=== PATIENT | male | born 1975 | race African-American/Black ===

== ENCOUNTER 2024-09-28 00:53 | Day surgery (SDC) | payer BC, SELFPAY ==
[2024-09-19 11:11] VITALS: BMI 29.0
--- OUTSIDE RECORDS SUMMARY | 2024-09-28 01:01 | XMS_ITS | Clinical Summary ---
Author Organization [facility] Address [address] [address] Care Team Providers Care Sound Technician Supervisor Name Role Phone Unknown, Provider Primary Care Provider Unavaila ble Source Comments [facility],non-owned Affiliates and Associated Physician Practices is amultiple site organization consisting of ambulatory clinics and hospital sitesin [place], [place], [place] and [place]. This disclosure is being madepursuant to the Care Everywhere program and may not contain all information available regarding this patient. Last updated 18.[facility] Allergies Active Allergy Reactions Criticality Noted Date Comments Oxycodone Urticaria Medium 12/16/2022 Medications * Be aware that medications may not be up to date on this document. Alwaysverify current medications with the patient. metoprolol tartrate IR (Lopressor) 100 MG tablet Take by mouth once daily Active losartan-hydroCHLOROth iazide (Hyzaar) 100-25 MG tablet Take 1 (one) tablet by mouth once daily 30 tablet 11 022 Active allopurinol (Zyloprim) 100 MG tablet TAKE 1 TABLET BY MOUTH EVERY DAY FOR 1 WEEK THEN TAKE 2 TABLETS BY MOUTH EVERY DAY 023 Active amLODIPine (Norvasc) 10 MG tablet Take 1 (one) tablet by mouth once daily 024 Active atorvastatin (Lipitor) 10 MG tablet Take 1 (one) tablet by mouth once daily 023 Active cloNIDine (Catapres) 0.2 MG tablet Take 1 (one) tablet by mouth every 8 hours as needed 022 Active metoprolol succinate XL 24hr (Toprol XL) 50 MG tablet Take 1 (one) tablet by mouth once daily 023 Active triamcinolone acetonide (Kenalog) 0.1 % cream APPLY THIN LAYER TOPICALLY TO THE AFFECTED AREA TWICE DAILY NEEDED Active losartan - hydroCHLOROthiazide (Hyzaar) 50-12.5 MG tablet Take 1 (one) tablet by mouth once daily Active methylPREDNISolone (Medrol Dosepak) 4 MG tablet Active traMADol (Ultram) 50 MG tablet Take 1 (one) tablet by mouth every 6 hours as needed for Pain 15 tablet 024 Active acetaminophen (Tylenol) 325 MG tablet Take 2 (two) tablets by mouth every 6 hours as needed for Fever or Pain Maximum allowable Acetaminophen amount = 4 Grams (4000 mg) / 24 hours. 30 tablet Active docusate sodium (Colace) 100 MG capsule Take 1 (one) capsule by mouth once daily 30 capsule Active Social History Tobacco Use Types Packs/Day Years Used Date Smoking Tobacco: Never Smokeless Tobacco: Never Tobacco Cessation:Counseling Given: Not Answered Alcohol Use Standard Drinks/Week Comments Yes 5 (1 standard drink = 0.6 oz pure alcohol) daily beer/vodka 4 beers and 8oz vodka AUDIT-C Answer Date Recorded Q1: How often do you have a drink containing alc ohol? 2-4 times a month 08/10/2023 Q2: How many drinks containi ng alcohol do you have on a typical day when you are drinking? 3 or 4 08/10/2023 Q3: How often do you have si x or more drinks on one occasion? Never 08/10/2023 Sex and Gender Information Value Date Recorded Sex Assigned at Not on file Legal Sex Male 4:01 PM CDT Gender Identity Not on file Sexual Orientation Not on file Last Filed Vital Signs Vital Sign Reading Time Taken Comments Blood Pressure 144/97 08/11/2023 10:52 AM CDT Pulse 86 08/11/2023 10:52 AM CDT Temperature 36.4 C (97.5 F) 08/10/2023 2:20 PM CDT Respiratory Rate 16 08/10/2023 3:10 PM CDT Oxygen Saturation 94% 08/11/2023 10:52 AM CDT Inhaled Oxygen Concentration - - Weight 111.6 kg (246 lb) 08/11/2023 10:52 AM CDT Height 182.9 cm (6') 08/11/2023 10:52 AM CDT Body Mass Index 33.36 08/11/2023 10:52 AM CDT Plan of Treatment Health Maintenance Due Date Last Done Comments COLOGUARD (AGES 45-75) - COL ON CA SCREENING 1975 COLON MONITORING 1975 COLONOSCOPY - COLON CA SCREENING 1975 CT COLONOGRAPHY - COLON CA SCREENING 1975 Colorectal Cancer Screening 1975 FIT - COLON CA SCREENING 1975 FLEX SIG - COLON CA SCREENING 1975 HIV SCREENING 1990 HEPATITIS C SCREENING 02/10/1993 DTAP/TDAP/TD VACCINES (1 - Tdap) 1994 HEPATITIS B VACCINE (1 of 3 - 19+ 3-dose series) 1994 SCREENING FOR DIABETES 12/17/2022 COVID-19 VACCINE (1 - 2023-2 5 season) 2024 DEPRESSION SCREENING 06/01/2024 INFLUENZA VACCINE (Season Ended) 2025 ZOSTER VACCINE (1 of 2) 2025 HIB VACCINE Aged Out No longer eligi ble based on patient's age to complete this topic HPV VACCINE Aged Out No longer eligi ble based on patient's age to complete this topic MENINGOCOCCAL (Group B) VACC INE SHARED DECISION-MAKING Aged Out No longer eligibl e based on patient's age to complete this topic MENINGOCOCCAL GROUPS A/C/Y/W VACCINE Aged Out No longer eligible b ased on patient's age to complete this topic Medical Devices Implanted Type Area Engineer Rf Deployment Device Identifier Shelf Expiration Date Model / Serial / Lot Independence Sut Cscr Fwr 2.2mm 2 Ndl Wire 4mm Implanted:Qty: 1 on 12/05/2022 by Conner Gil MD at [facility] Right: Hand [employer] 03/31/2027 AR-1318FT / / [id number] Independence Sut Cscr Fwr 2.2mm 2 Ndl Wire 4mm Implanted:Qty: 1 on 12/05/2022 by Conner Gil MD at [facility] Right: Hand [employer] 03/31/2027 AR-1318FT / / [id number] Sys Impl Internalbrace Forefoot Peek Implanted:Qty: 1 on 12/05/2022 by Conner Gil MD at [facility] Right: Hand [employer] 07/01/2027 AR-1530P- CP / / [id number] Graft Bone Ntr Ac Cnxs Dbm 1ml Ptty Syr - [id number] Implanted:Qty: 1 on 12/05/2022 by Conner Gil MD at [facility] Right: Wrist [employer] 10/27/20233000-0 / [id number] / [id number] Screw 3.5mm 22mm Mini Ft Comp Slf-Tap Implanted:Qty: 1 on 12/05/2022 by Conner Gil MD at [facility] Right: Wrist [employer] AR-8730-2 2H / / Graft Bone Ac Cnxs Dbm 2.5ml Ptty Rtu - [id number] Implanted:Qty: 1 on 08/10/2023 by Conner Gil MD at [facility] Right: Wrist [employer] 08/27/20233000-0 / [id number] / [id number] Explanted Type Area Engineer Rf Deployment Device Identifier Shelf Expiration Date Model / Serial / Lot Screw 3.5mm 20mm T15 Ft Slf-Tap Sld Hxlb Implanted:Qty: 1 on 12/05/2022 by Conner Gil MD at [facility] Explanted:Qty: 1 on 08/10/2023 by Conner Gil MD at [facility] Right: Wrist [employer] AR-8935-20 / / Description:This screw was n ot on the x-rays taken for the hardware removal surgery. Marlena Krevlock Screw, Ti 2.4x20 Implanted:Qty: 1 on 12/05/2022 by Conner Gil MD at [facility] Explanted:Qty: 1 on 08/10/2023 by Conner Gil MD at [facility] Right: Wrist [id number] / / Marlena Krevlock Screw, Ti 2.4 X 22 Implanted:Qty: 1 on 12/05/2022 by Conner Gil MD at [facility] Explanted:Qty: 1 on 08/10/2023 by Conner Gil MD at [facility] Right: Wrist [id number] / / Screw 3.5mm 16mm Kreulock Ti Nonster Implanted:Qty: 1 on 12/05/2022 by Conner Gil MD at [facility] Explanted:Qty: 1 on 08/10/2023 by Conner Gil MD at [facility] Right: Wrist [employer] AR-8935CL-1 6 / / Screw 3.5mm 16mm T15 Ft Slf-Tap Sld Hxlb Implanted:Qty: 1 on 12/05/2022 by Conner Gil MD at [facility] Explanted:Qty: 1 on 08/10/2023 at [facility] Right: Wrist [employer] AR-8935-16 / / Low Profile Screw, 2.4 Mm X 20 Mm Cortex Implanted:Qty: 1 on 12/05/2022 by Conner Gil MD at [facility] Explanted:Qty: 1 on 08/10/2023 by Conner Gil MD at [facility] Right: Wrist [id number] / / Dorsal Distal Rad Plt, Ti Std Rt 4h Implanted:Qty: 1 on 12/05/2022 by Conner Gil MD at [facility] Explanted:Qty: 1 on 08/10/2023 by Conner Gil MD at [facility] Right: Wrist AR-8916DSR- 04 / / Insurance ANTH Care Teams Sound Technician Supervisor Relationship Specialty Start Date End Date Unknown, Provider PCP - General 12/05/22
--- OUTSIDE RECORDS SUMMARY | 2024-09-28 01:01 | XMS_ITS | Referral Summary ---
Author Organization [facility] Address [address] [place] [id number] Care Team Providers Care Underwriting Account Representative Name Role Phone Referring, Unknown MD Primary Care Provider Unav ailable Allergies No known active allergies Medications losartan-hydroch lorothiazide (HYZAAR) 100-25 mg per tablet Take 1 tablet by mouth daily 30 tablet 03/18/2022 Active metoprolol (LOPRESSOR) 100 mg tablet Take by mouth daily Pt is unsure of dose. Active amLODIPine (NORVASC) 5 mg tablet Take 1 tablet (5 mg total) by mouth daily 30 tablet 5 04/28/2022 Active Active Problems Problem Noted Date Diagnosed Date Essential hypertension 04/28/2022 Immunizations Immunization Administration Dates Next Due Tdap 12/03/2022 Social History Tobacco Use Types Packs/Day Years Used Date Smoking Tobacco: Former Cigarettes Tobacco Cessation:Counseling Given: Not Answered AUDIT-C Answer Date Recorded Q1: How often do you have a drink containing alcohol? 4 or more times a week 04/28/2022 Average Number of Drinks Not on file 022 Frequency of Binge Drinking Not on file 04/02 Personal Safety Answer Date Recorded Have you ever been in or are you currently in a harmful physical or emotional relationship or is someone making you feel afraid or unsafe? 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 Gender Identity Not on file Sexual Orientation Not on file Last Filed Vital Signs Vital Sign Reading Time Taken Comments Blood Pressure 132/94 12/03/2022 3:45 PM CDT Pulse 84 12/03/2022 3:45 PM CDT Temperature 36.4 C (97.6 F) 12/03/2022 1:13 PM CDT Respiratory Rate 18 12/03/2022 3:45 PM CDT Oxygen Saturation 96% 12/03/2022 3:45 PM CDT Inhaled Oxygen Concentration - - Weight 115.7 kg (255 lb) 12/03/2022 1:13 PM CDT Height 182.9 cm (6') 12/03/2022 1:13 PM CDT Body Mass Index 34.58 12/03/2022 1:13 PM CDT Plan of Treatment Not on file Insurance [employer] Member Subscriber Plan / Payer (Ef fective 2021-Present) Name:Dhruv Samaniego Relation to Subscriber:Spouse Name:DHRUV SAMANIEGO Date of :1975 (Home) Address: [address] [place] [id number] Payer ID:[id number] (NAIC) Type:eVoter Address: [facility] [id number] [place] [id number] Care Teams Underwriting Account Representative Relationship Specialty Start Date End Date Referring, Unknown, PCP - General Pediatrics 03/18/22
--- OUTSIDE RECORDS SUMMARY | 2024-09-28 01:01 | XMS_ITS | Clinical Summary ---
Author Organization [facility] Address [address] [place] [id number] Care Team Providers Care Director Of Cath Lab Name Role Phone Referring, Unknown MD Primary [...] Immunization Administration Dates Next Due Tdap 12/03/2022 Surgical History Surgery Date Site/Laterality Comments SURGERY FOR CONGENITAL HERNIA Medical History Medical History Date Comments Hypertension Family History Medical History Relation Name Comments Hypertension Father Hypertension Mother Relation Name Status Comments Father Mother Social History Tobacco Use Types Packs/Day Years [...] on file 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 Gender Identity Not on file Sexual Orientation Not on file Obstetrics History Last Filed Vital Signs Vital Sign Reading [...] 12/03/2022 1:13 PM CDT Plan of Treatment Health Maintenance Due Date Last Done Comments Colon Cancer Screening-Colonoscopy 1975 Depression Screening 1975 Hepatitis C Screening 1975 Prostate Cancer Screening-PSA 1975 Hepatitis B Screening 1993 Regular Well Visit/Exam 18-64 1993 Covid-19 Vaccine (2023- season) 2024 04/18/2021, 08/21/2020, 07/30/2020 Influenza Vaccine (#1) 2024 DTaP/Tdap/Td Vaccine (7 - Td or Tdap) 12/03/2032 12/03/2022, 03/21/1991, 10/31/1976, Additional history exists Pneumococcal vaccine <65 Aged Out No longer eligible based on patient's age to complete this topic Insurance [facility] Address: [id number] [place] [address] [employer] Care Teams Director Of Cath Lab Relationship Specialty Start Date End Date Referring, Unknown, PCP - General Pediatrics 03/18/22
[2024-09-28 09:39] VITALS: BP 150/106; PULSE 69; RESP 20; TEMP 36.2; O2SAT 99; BMI 29.4
[2024-09-28] MEDS: LACTATED RINGERS 1,000 ML 150 ML IV CONT (09:41)
--- NOTE | 2024-09-28 10:04 | WPDANESEPPF ---
Anes - Initial Pre Proc Eval Procedure: Operation Date: 09/28/24 10:30 Proposed Procedures p Screening Colonoscopy - Jeff Del Valle MD Date/Time: 09/28/24 10:04 Surgeon: Jeff Del Valle MD Pre Op Diagnosis: screening colon Patient Data Age: 49 Gender: M Height: 1.83 m Weight: 98.3 kg Last Vital Signs Temp 97.2 F L 09/28/24 09:39 Pulse 69 09/28/24 09:39 Resp 20 09/28/24 09:39 BP 150/106 H 09/28/24 09:39 Pulse Ox 99 09/28/24 09:39 O2 Del Method Room Air 09/28/24 09:39 Allergies Allergy/AdvReac Type Severity Reaction Status Date / Time No Known Allergies Allergy Verified 09/28/24 09:37 Home Medications ?Medication ?Instructions ?Recorded ?Confirmed ?Type atorvastatin 10 mg tablet 10 mg PO DAILY #30 tabs 03/26/22 09/28/24 Rx losartan 100 1 tablet PO DAILY #90 tabs 11/27/22 09/28/24 Rx mg-hydrochlorothiazide 25 mg tablet simvastatin 10 mg tablet 10 mg PO DAILY #90 tabs 11/27/22 09/28/24 Rx metoprolol succinate 50 mg 50 mg PO DAILY #90 tabs 01/14/24 09/28/24 Rx tablet,extended release 24 hr amlodipine 10 mg tablet See Rx Instructions .Route 04/21/24 09/28/24 Rx .COMPLEX #90 tabs triamcinolone acetonide 0.1 % 1 applic topical TID #80 grams 05/11/24 09/28/24 Rx topical ointment Patient hx anesthesia problems: none Family hx anesthesia problems: none Results Review: All pre-operative results and documents have been reviewed as part of the pre-operative evaluation. [facility] Past Medical History Medical History Hyperglycemia HLD (hyperlipidemia) HTN (hypertension) Social History Social History Smoking status: Former smoker Tobacco type: cigarettes Alcohol intake: current Drinks per week: 7 Substance use: former Substance use type: marijuana Last use: yrs Do You Feel Safe in your Home?: Yes Lack of Transportation: No Lack of Food: Never True Current Housing: I Have Housing Concerned About Future Housing: No Difficulty Paying Gas/Electric Bills: No Difficulty Paying for Meds: No Currently Unemployed: No Education: Associate Degree Difficulty w/ Childcare or Family Care: No Living arrangements: with family Spiritual care concerns: No Anes - Eval Final PreProcedure Day of Procedure 09/28/24 10:04 Patient weight: normal Heart: regular rate and rhythm Lungs: clear to auscultation Airway: Mallampati scale class II Neurological: alert and oriented Last oral intake: >/= 8 hours ASA classification: II Emergent: no Anesthetic plan: proceed Anesthesia type and monitoring: general GIVS and standard monitoring Results Review: All pre-operative results and documents have been reviewed as part of the pre-operative evaluation. Informed Consent: The patient's anesthetic plan and its attendant risks and benefits were discussed with the patient/family/POA. Questions were solicited and answers provided to the satisfaction of the patient/family/POA.
--- NOTE | 2024-09-28 10:27 | PM.IMHP ---
H&P: HPI History of Present Illness Date/Time: 09/28/24 10:27 Chief Complaint: Screening colonoscopy Narrative: This is the patient's first colonoscopy. There are no GI symptoms and there is no family history of colorectal cancer. Review of Systems Review of Systems: All systems reviewed & are unremarkable except as noted in HPI and below PMFSH Past Medical History Medical History Hyperglycemia HLD (hyperlipidemia) HTN (hypertension) Social History Social History Smoking status: Former smoker Tobacco type: cigarettes Alcohol intake: current Drinks per week: 7 Substance use: former Substance use type: marijuana Last use: yrs Do You Feel Safe in your Home?: Yes Lack of Transportation: No Lack of Food: Never True Current Housing: I Have Housing Concerned About Future Housing: No Difficulty Paying Gas/Electric Bills: No Difficulty Paying for Meds: No Currently Unemployed: No Education: Associate Degree Difficulty w/ Childcare or Family Care: No Living arrangements: with family Spiritual care concerns: No Meds Home Medications and Allergies Home Medications ?Medication ?Instructions ?Recorded ?Confirmed ?Type atorvastatin 10 mg tablet 10 mg PO DAILY #30 tabs 03/26/22 09/28/24 Rx losartan 100 1 tablet PO DAILY #90 tabs 11/27/22 09/28/24 Rx mg-hydrochlorothiazide 25 mg tablet simvastatin 10 mg tablet 10 mg PO DAILY #90 tabs 11/27/22 09/28/24 Rx metoprolol succinate 50 mg 50 mg PO DAILY #90 tabs 01/14/24 09/28/24 Rx tablet,extended release 24 hr amlodipine 10 mg tablet See Rx Instructions .Route 04/21/24 09/28/24 Rx .COMPLEX #90 tabs triamcinolone acetonide 0.1 % 1 applic topical TID #80 grams 05/11/24 09/28/24 Rx topical ointment Allergies Allergy/AdvReac Type Severity Reaction Status Date / Time No Known Allergies Allergy Verified 09/28/24 09:37 Vital Signs Vital Signs - 24 hr 09/28/24 09:39 Temperature 97.2 F L Pulse Rate 69 Respiratory Rate 20 Blood Pressure 150/106 H Pulse Oximetry 99 Oxygen Delivery Room Air Assessment and Plan Assessment and plan (1) Colon cancer screening: Code(s): Z12.11 - Encounter for screening for malignant neoplasm of colon Status: Acute Assessment and Plan: The patient is deemed a good candidate for the procedure. Consent signed. Will proceed.
[2024-09-28 10:59] VITALS: BP 140/105; PULSE 78; RESP 17; O2SAT 100
[2024-09-28 11:09] VITALS: BP 163/119; PULSE 69; RESP 20; O2SAT 100
--- NOTE | 2024-09-28 11:11 | SUR.PHASEII ---
patients blood pressure is 163/119. Patient stated I haven't taken medicine since the day before yesterday and only took half of the metoprolol today . was notified of the blood pressure. Patient was educated to go home and take the rest of his medications and given physcians number if he has any concerns
[2024-09-28 11:19] VITALS: BP 169/127; PULSE 60; RESP 14; O2SAT 100
[2024-09-28 11:29] VITALS: BP 151/112; PULSE 65; RESP 14; O2SAT 100
--- NOTE | 2024-09-28 11:29 | SUR.PHASEII ---
Patients blood pressure was still elevated, patient isnt symptomatic. pt stated i feel fine and thats normal before i take my medicine . was notified again via phone of patients blood pressure. felt the patient was okay to be discharged and educated to take medication. Patient was given physcians number to reach for any concerns.
== END 2024-09-28 11:34 | disposition home or self-care (01) ==
PROVIDERS: PCP Emergency Medicine; Referring Provider Emergency Medicine; Visit Provider Internal Medicine Gastroenterology
PROC: 0DJD8ZZ Inspection of Lower Intestinal Tract, Via Natural or Artificial Opening Endoscopic (ICD-10-PCS; CPT 45378; principal; 2024-09-28 10:30)
DX: Z12.11 Encounter for screening for malignant neoplasm of colon (principal); K57.30 Diverticulosis of large intestine without perforation or abscess without bleeding; E78.5 Hyperlipidemia, unspecified; I10 Essential (primary) hypertension; R73.9 Hyperglycemia, unspecified; F12.90 Cannabis use, unspecified, uncomplicated; Z87.891 Personal history of nicotine dependence
CPT/HCPCS: 45378; J2704; J7120